=== PATIENT | female | born 1980 | race Caucasian/White ===

== ENCOUNTER 2017-05-03 14:09 | Observation (INO) | payer BC, MEDICAID, OTHER ==
[~2017-05-03] VITALS: Ht 167.6 cm; Wt 100.0 kg
[~2017-05-03 14:09] MED LIST: CYCL-36 PO; LEVEMIR SC; LISI-363 PO; MELO15TA2 PO; METO10TA PO; PERC10TA27 PO; REQU0.25 OR; TIZA4 PO; TRIL600T PO; TYLE3 PO; [UNRECOGNIZED DRUG - OTHER] SQ
[2017-05-03 14:13] VITALS: BP 179/103; PULSE 101; RESP 16; TEMP 97.7; O2SAT 99
[2017-05-03] MEDS ORDERED: ASPIRIN 325 MG TAB PO ONE (14:30)
[2017-05-03] MEDS ORDERED: SODIUM CHLORID 0.9% 500 ML INJ 500 ML IV ONE (14:30)
[2017-05-03] MEDS ORDERED: ONDANSETRON HCL 4 MG/2 ML VIAL IV PUSH ONE (14:30)
[2017-05-03] MEDS ORDERED: HYDROmorphone HCL PF 1 MG/ML VIAL IV PUSH ONE (14:30)
--- NOTE | 2017-05-03 14:43 | RADRPT ---
EXAM DATE/TIME: 05/03/2017 14:27 [place] COMPARISON: No previous studies available for comparison. INDICATIONS : Chest pain today. MEDICAL HISTORY : Hypertension. SURGICAL HISTORY : None. ENCOUNTER: Initial ACUITY: 1 day PAIN SCORE: 10/10 LOCATION: Bilateral chest FINDINGS: A single view of the chest demonstrates the lungs to be symmetrically aerated without evidence of mas s, infiltrate or effusion. The cardiomediastinal contours are unremarkable. Osseous structures are intact. CONCLUSION: No acute disease. Elias Romero MD on May 03, 2017 at 14:40 Board Certified Radiologist. This report was verified electronically.
[2017-05-03] MEDS ORDERED: OXCA600T PO (14:52)
[2017-05-03] MEDS ORDERED: REGL10TA5 PO (14:52)
[2017-05-03] MEDS ORDERED: ZANA4CAP PO (14:52)
[2017-05-03] MEDS ORDERED: GABA300C5 PO (14:52)
[2017-05-03] MEDS ORDERED: OXYC-433 PO (14:52)
[2017-05-03] MEDS ORDERED: NOVOLOGMXP SQ ×2 (14:52)
[2017-05-03] MEDS ORDERED: ROPI0.25 PO (14:52)
[2017-05-03] MEDS ORDERED: LISI30TA4 PO (14:52)
--- NOTE | 2017-05-03 15:05 | PD ---
HPI Chief Complaint: Chest Pain Time Seen by Provider: 14:19 Travel History International Travel<30 days: No Contact w/Intl Traveler<30days: No Traveled to known affect area: No History of Present Illness HPI 36-year-old female that presents to the ED for evaluation of right-sided chest pain for the past 2 hours. No injury or trauma. Per patient herself to take a deep breath. Denies any urinary or bowel movement issues. No history of this in the past. She has had her gallbladder removed. Denies any recent travel. She does have a history of diabetes and her blood pressure. No trauma. No overuse. Pain is mostly to the right breast and radiates to the back. History of neuropathy and takes pain medication chronically. Denies feeling similar to the past. No history of heart disease on herself but history of heart disease in family. Denies possibility of . Allergies to different medications. Patient states that her pain, nondistended 10. Gets worse with movement as well as with deep breaths. Has not taken anything for this. PFSH Past Medical History Arthritis: Yes Asthma: No Autoimmune Disease: No Blood Disorders: No Anxiety: Yes Depression: Yes Heart Rhythm Problems: No Cancer: No Cardiac Catheterization: No Cardiovascular Problems: No High Cholesterol: No Chemotherapy: No Chest Pain: No Congestive Heart Failure: No COPD: No Cerebrovascular Accident: No Diabetes: Yes (TYPE 1) Patient Takes Glucophage: No Diminished Hearing: No Gastrointestinal Disorders: No GERD: No Glaucoma: No Genitourinary: No Headaches: Yes Hepatitis: No Hiatal Hernia: No Hypertension: Yes Immune Disorder: No Kidney Stones: No Musculoskeletal: Yes Neurologic: Yes (NEURALGIA) Psychiatric: No Respiratory: No Resp. Syncytial Virus (RSV): No Immunizations Current: Yes Myocardial Infarction: No Radiation Therapy: No Renal Failure: No Seizures: Yes Shingles: Yes Sickle Cell Disease: No Sleep Apnea: No Thyroid Disease: No Ulcer: No ?: Not Menopausal: Yes : 2 Para: 2 Tubal Ligation: Yes Past Surgical History Abdominal Surgery: No AICD: No Cardiac Surgery: No Section: Yes (X 2) Cholecystectomy: Yes Coronary Artery Bypass Graft: No Ear Surgery: No Endocrine Surgery: Yes (ERCP 01/2005) Eye Surgery: No Genitourinary Surgery: No Gynecologic Surgery: Yes (hysterectomy partial just uterus 2005) Hysterectomy: Yes (2006) Joint Replacement: No Neurologic Surgery: Yes (SHINGLES) Oral Surgery: No Pacemaker: No Thoracic Surgery: No Other Surgery: Yes Social History Alcohol Use: No Tobacco Use: Yes (1/2 PPD) Substance Use: No Allergies-Medications (Allergen,Severity, Reaction): Coded Allergies: citalopram (Unverified Allergy, Severe, VOMIT, 09/26/16) duloxetine (Unverified Allergy, Severe, VOMIT, 09/26/16) fluvoxamine (Unverified Allergy, Severe, VOMIT, 09/26/16) morphine (Unverified Allergy, Severe, Rash, 09/26/16) paroxetine (Unverified Allergy, Severe, VOMIT, 09/26/16) sertraline (Unverified Allergy, Severe, VOMIT, 09/26/16) venlafaxine (Unverified Allergy, Severe, VOMIT, 09/26/16) Sulfa (Sulfonamide Antibiotics) (Unverified Allergy, Intermediate, 09/26/16 ) lorazepam (Unverified Allergy, Mild, AGITATION, 09/26/16) gabapentin (Unverified Adverse Reaction, Intermediate, 09/26/16) Uncoded Allergies: all dm pills (Adverse Reaction, Intermediate, 08/02/09) Reported Meds & Prescriptions Reported Meds & Active Scripts Active Reported Oxycodone-Acetaminophen 10-325 mg Tab 1 Tab PO Q4H PRN Zanaflex (Tizanidine HCl) 4 Mg Cap 4 Mg PO Q8HR Gabapentin 300 Mg Cap 300 Mg PO QID Ropinirole 0.25 Mg Tab 0.25 Mg PO TID Reglan (Metoclopramide HCl) 10 Mg Tab 10 Mg PO Q6HR Lisinopril 30 Mg Tab 30 Mg PO DAILY Novolog Mix 70-30 Inj (Insulin Aspart Prota 70%/Aspart 30%) 1,000 Unit/10 Ml Vial 44 Units SQ DAILY Novolog Mix 70-30 Inj (Insulin Aspart Prota 70%/Aspart 30%) 1,000 Unit/10 Ml Vial 66 Units SQ HS Oxcarbazepine 600 Mg Tab 600 Mg PO TID Review of Systems Except as stated in HPI: all other systems reviewed are Neg Physical Exam Narrative GENERAL: SKIN: Warm and dry. HEAD: Atraumatic. Normocephalic. EYES: Pupils equal and round. No scleral icterus. No injection or drainage. ENT: No nasal bleeding or discharge. Mucous membranes pink and moist. Tongue is midline. No uvula deviation. NECK: Trachea midline. No JVD. CARDIOVASCULAR: Regular rate and rhythm. No murmurs, S3, S4. RESPIRATORY: No accessory muscle use. Clear to auscultation. Breath sounds equal bilaterally. GASTROINTESTINAL: Abdomen soft, non-tender, nondistended. Hepatic and splenic margins not palpable. MUSCULOSKELETAL: Extremities without clubbing, cyanosis, or edema. No obvious deformities. Full range of motion of the upper and lower extremity bilaterally. No reproducible pain on the right breast or with touch. No lumbar , thoracic, cervical spine tenderness to palpation. 2+ pulses bilaterally. NEUROLOGICAL: Awake and alert. No obvious cranial nerve deficits. Motor grossly within normal limits. Five out of 5 muscle strength in the arms and legs. Normal speech. PSYCHIATRIC: Appropriate mood and affect; insight and judgment normal. Data Data Last Documented VS Vital Signs Date Time Temp Pulse Resp B/P (MAP) Pulse Ox O2 Delivery O2 Flow Rate FiO2 05/03/17 16:16 95 20 126/58 (80) 97 Room Air 05/03/17 14:13 97.7 Orders Orders Electrocardiogram (05/03/17 14:25) Ckmb (Isoenzyme) Profile (05/03/17 14:25) Complete Blood Count With Diff (05/03/17 14:25) Comprehensive Metabolic Panel (05/03/17 14:25) D-Dimer (05/03/17 14:25) Magnesium (Mg) (05/03/17 14:25) Prothrombin Time / Inr (Pt) (05/03/17 14:25) Act Partial Throm Time (Ptt) (05/03/17 14:25) Troponin I (05/03/17 14:25) Lipase (05/03/17 14:25) Ecg Monitoring (05/03/17 14:25) Bilateral Bp Monitoring (05/03/17 14:25) Iv Access Insert/Monitor (05/03/17 14:25) Oximetry (05/03/17 14:25) Oxygen Administration (05/03/17 14:25) Aspirin (Aspirin) (05/03/17 14:30) Sodium Chlorid 0.9% 500 Ml Inj (Ns 500 M (05/03/17 14:30) Chest, Single Ap (05/03/17 ) Hydromorphone Pf Inj (Dilaudid Pf Inj) (05/03/17 14:30) Ondansetron Inj (Zofran Inj) (05/03/17 14:30) Hydromorphone Pf Inj (Dilaudid Pf Inj) (05/03/17 15:15) CKMB (05/03/17 15:11) CKMB% (05/03/17 15:11) Admit Order (Ed Use Only) (05/03/17 16:29) Labs Laboratory Tests Test 05/03/17 15:11 White Blood Count 11.2 TH/MM3 Red Blood Count 5.05 MIL/MM3 Hemoglobin 14.7 GM/DL Hematocrit 44.5 % Mean Corpuscular Volume 88.2 FL Mean Corpuscular Hemoglobin 29.2 PG Mean Corpuscular Hemoglobin Concent 33.1 % Red Cell Distribution Width 13.5 % Platelet Count 322 TH/MM3 Mean Platelet Volume 8.1 FL Neutrophils (%) (Auto) 73.6 % Lymphocytes (%) (Auto) 20.8 % Monocytes (%) (Auto) 3.0 % Eosinophils (%) (Auto) 2.1 % Basophils (%) (Auto) 0.5 % Neutrophils # (Auto) 8.2 TH/MM3 Lymphocytes # (Auto) 2.3 TH/MM3 Monocytes # (Auto) 0.3 TH/MM3 Eosinophils # (Auto) 0.2 TH/MM3 Basophils # (Auto) 0.1 TH/MM3 CBC Comment DIFF FINAL Differential Comment Prothrombin Time 9.6 SEC Prothromb Time International Ratio 0.9 RATIO Activated Partial Thromboplast Time 39.2 SEC D-Dimer Quantitative (PE/DVT) 0.28 MG/L FEU Blood Urea Nitrogen 9 MG/DL Creatinine 0.62 MG/DL Random Glucose 243 MG/DL Total Protein 7.6 GM/DL Albumin 3.7 GM/DL Calcium Level 8.5 MG/DL Magnesium Level 1.6 MG/DL Alkaline Phosphatase 96 U/L Aspartate Amino Transf (AST/SGOT) 12 U/L Alanine Aminotransferase (ALT/SGPT) 17 U/L Total Bilirubin 0.1 MG/DL Sodium Level 135 MEQ/L Potassium Level 4.2 MEQ/L Chloride Level 102 MEQ/L Carbon Dioxide Level 24.5 MEQ/L Anion Gap 9 MEQ/L Estimat Glomerular Filtration Rate 109 ML/MIN Total Creatine Kinase 125 U/L Creatine Kinase MB 2.1 NG/ML Troponin I LESS THAN 0.02 NG/ML Lipase 101 U/L MDM Medical Decision Making Medical Screen Exam Complete: Yes Emergency Medical Condition: Yes Medical Record Reviewed: Yes Interpretation(s) EKG shows sinus rhythm with No sign of acute ischemia read by me and attending Last Impressions Chest X-Ray 05/03/17 0000 Signed Impressions: Service Date/Time: April 14:27 - CONCLUSION: No acute disease. Elias Romero MD CBC & BMP Diagram 05/03/17 15:11 Total Protein 7.6, Albumin 3.7, Calcium Level 8.5, Magnesium Level 1.6, Alkaline Phosphatase 96, Aspartate Amino Transf (AST/SGOT) 12 L, Alanine Aminotransferase (ALT/SGPT) 17, Total Bilirubin 0.1 L troponin and CKMB negative lipase WNL coags WNL D-dimer negative Differential Diagnosis Chest pain versus atypical chest pain versus PE versus pneumothorax versus ACS versus muscle strain versus pneumonia versus pleurisy Narrative Course 36-year-old female that presents to the ED for evaluation of right-sided chest pain. Patient was properly examined and was found to have signs and symptoms concerning with chest pain. Unclear etiology at this time. Labs and imaging ordered. Pain meds ordered. Labs and imaging showed no sign of acute disease. Unclear etiology of the patient's pain. Patient still in some discomfort. Unfortunately although patient is young she does have multiple risk factors for ACS including family history, smoking, hypertension and diabetes. Because of this as patient has never had a stress test or any cardiology follow-up with the recommended admission for chest pain center for further eval to rule out cardiac etiology. Patient agrees with this. Patient will be admitted to the chest pain center by me. Patient was admitted to the chest pain center. Diagnosis Primary Impression: Chest pain in adult Admitting Information Admitting Physician Requests: Vitor Lanier May 03, 2017 15:05
[2017-05-03 15:13] VITALS: BP 118/59; PULSE 81; RESP 20; O2SAT 96
[2017-05-03] MEDS ORDERED: HYDROmorphone HCL PF 2 MG/ML VIAL IV PUSH ONE (15:15)
[2017-05-03 15:41] LABS: AUTOMATED NEUTROPHIL # 8.2 TH/MM3 (1.8-7.7); BASOPHIL # 0.1 TH/MM3 (0-0.2); BASOPHIL % 0.5 % (0.0-2.0); EOSINOPHIL # 0.2 TH/MM3 (0-0.4); EOSINOPHIL % 2.1 % (0.0-4.0); HEMATOCRIT 44.5 % (35.0-46.0); HEMOGLOBIN 14.7 GM/DL (11.6-15.3); LYMPH % 20.8 % (9.0-44.0); LYMPHOCYTE # 2.3 TH/MM3 (1.0-4.8); MEAN CELL VOLUME 88.2 FL (80.0-100.0); MEAN CORPUSCULAR HEMOGLOBIN 29.2 PG (27.0-34.0); MEAN CORPUSCULAR HGB CONC 33.1 % (32.0-36.0); MEAN PLATELET VOLUME 8.1 FL (7.0-11.0); MONOCYTE # 0.3 TH/MM3 (0-0.9); NEUT % 73.6 % (16.0-70.0); PLATELET COUNT 322 TH/MM3 (150-450); RED BLOOD COUNT 5.05 MIL/MM3 (4.00-5.30); RED CELL DISTRIBUTION WIDTH 13.5 % (11.6-17.2); WHITE BLOOD COUNT 11.2 TH/MM3 (4.0-11.0)
[2017-05-03 15:54] LABS: INTERNATIONAL NORMALIZED RATIO 0.9 RATIO; PROTHROMBIN TIME - PATIENT 9.6 SEC (9.8-11.6)
[2017-05-03 16:00] LABS: ALBUMIN 3.7 GM/DL (3.4-5.0); ALT (GPT) 17 U/L (10-53); AST (GOT) 12 U/L (15-37); BICARBONATE 24.5 MEQ/L (21.0-32.0); BLOOD UREA NITROGEN 9 MG/DL (7-18); CALCIUM 8.5 MG/DL (8.5-10.1); CHLORIDE 102 MEQ/L (98-107); CREATININE 0.62 MG/DL (0.50-1.00); GLOMERULAR FILTRATION RATE 109 ML/MIN (>89); GLUCOSE,RANDOM 243 MG/DL (74-106); MAGNESIUM 1.6 MG/DL (1.5-2.5); SODIUM (NA) 135 MEQ/L (136-145)
[2017-05-03 16:04] LABS: ALKALINE PHOSPHATASE 96 U/L (45-117); TOTAL BILIRUBIN ADULT 0.1 MG/DL (0.2-1.0); TOTAL PROTEIN 7.6 GM/DL (6.4-8.2); TROPONIN I LESS THAN 0.02 NG/ML (0.02-0.05)
[2017-05-03 16:05] LABS: D-DIMER 0.28 MG/L FEU (0.00-0.50)
[2017-05-03 16:16] VITALS: BP 126/58; PULSE 95; RESP 20; O2SAT 97
[2017-05-03] MEDS ORDERED: METOCLOPRAMIDE HCL 10 MG TAB PO PRN (16:45)
--- NOTE | 2017-05-03 16:55 | HHI.HP ---
HPI Primary Care Physician Non-Staff Chief Complaint Chest pain History of Present Illness This is a 36-year-old female history of hypertension, hyperlipidemia, diabetes, chronic neck pain, seizure disorder, and tobacco abuse that presents via private vehicle with a complaint of chest discomfort. 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 Is been there for 2 hours. The discomfort is worsened by deep breath. Multiple nauseous initially but states that is really not uncommon. She has nausea regularly has Reglan for that. Denies shortness of breath or diaphoresis. She cannot recall having symptoms like this before. Denies history of CAD. Upon reviewing records she had a nonischemic ETT at this facility in 2007. Denies recent illnesses. Denies fevers or chills. Denies recent travel. Denies . Review of Systems General: Patient denies fevers, chills, and recent travel. HEENT: Patient denies headache, sore throat, difficulty swallowing. Cardiovascular: Has the chest discomfort as mentioned above. Denies sensation of heart beating rapidly or irregularly. No syncope. Denies diaphoresis. Respiratory: She has inspirational chest discomfort. Denies shortness of breath. Denies coughing wheezing or hemoptysis. GI: She was nauseous but that is really not that uncommon for her. Patient denies vomiting, diarrhea, abdominal pain, bloody stools. Musculoskeletal: Chronic neck pain. Patient denies joint pain or edema. Denies calf pain or edema. Neurovascular: Patient denies numbness, tingling, weakness in extremities. Denies headache. Endocrine: Denies polyuria and polydipsia. Hematologic: Denies easy bruising. Skin: Denies rash or itching. Past Family Social History Allergies: Coded Allergies: citalopram (Unverified Allergy, Severe, VOMIT, 09/26/16) duloxetine (Unverified Allergy, Severe, VOMIT, 09/26/16) fluvoxamine (Unverified Allergy, Severe, VOMIT, 09/26/16) morphine (Unverified Allergy, Severe, Rash, 09/26/16) paroxetine (Unverified Allergy, Severe, VOMIT, 09/26/16) sertraline (Unverified Allergy, Severe, VOMIT, 09/26/16) venlafaxine (Unverified Allergy, Severe, VOMIT, 09/26/16) Sulfa (Sulfonamide Antibiotics) (Unverified Allergy, Intermediate, 09/26/16 ) lorazepam (Unverified Allergy, Mild, AGITATION, 09/26/16) gabapentin (Unverified Adverse Reaction, Intermediate, 09/26/16) Uncoded Allergies: all dm pills (Adverse Reaction, Intermediate, 08/02/09) Past Medical History Hyperlipidemia however she does not take medication for. Hypertension, diabetes , chronic neck pain, seizure disorder, tobacco abuse. Denies known coronary artery disease. Past Surgical History , hysterectomy, cholecystectomy. Reported Medications Reported Meds & Active Scripts Active Reported Oxycodone-Acetaminophen 10-325 mg Tab 1 Tab PO Q4H PRN Zanaflex (Tizanidine HCl) 4 Mg Cap 4 Mg PO Q8HR Gabapentin 300 Mg Cap 300 Mg PO QID Ropinirole 0.25 Mg Tab 0.25 Mg PO TID Reglan (Metoclopramide HCl) 10 Mg Tab 10 Mg PO Q6HR Lisinopril 30 Mg Tab 30 Mg PO DAILY Novolog Mix 70-30 Inj (Insulin Aspart Prota 70%/Aspart 30%) 1,000 Unit/10 Ml Vial 44 Units SQ DAILY Novolog Mix 70-30 Inj (Insulin Aspart Prota 70%/Aspart 30%) 1,000 Unit/10 Ml Vial 66 Units SQ HS Oxcarbazepine 600 Mg Tab 600 Mg PO TID Active Ordered Medications Current Medications Medications (Trade) Dose Ordered Sig/Sidney Route Start Time Stop Time Status Last Admin (Neurontin) 300 mg QID PO 05/03/17 18:00 UNV (Reglan) 10 mg Q6HR PRN PO 05/03/17 16:45 UNV (Trileptal) 600 mg TID PO 05/03/17 18:00 UNV (Percocet 10-325 Mg) 1 tab Q4H PRN PO 05/03/17 16:45 UNV (Requip) 0.25 mg TID PO 05/03/17 18:00 UNV (Zanaflex) 4 mg Q8HR PO 05/03/17 22:00 UNV Non-Formulary Medication 30 mg DAILY PO 05/04/17 09:00 UNV Family History Denies family history of CAD. Social History Smokes about one half pack of cigarettes daily for 21 years. Denies alcohol or illicit drug use. 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 Physical Exam Vital Signs Vital Signs Date Time Temp Pulse Resp B/P (MAP) Pulse Ox O2 Delivery O2 Flow Rate FiO2 05/03/17 16:16 95 20 126/58 (80) 97 Room Air 05/03/17 15:16 97 Room Air 05/03/17 15:13 81 20 118/59 (78) 96 Room Air 05/03/17 14:13 97.7 101 16 179/103 (128) 99 Physical Exam GENERAL: This is a well-nourished, well-developed patient, in no apparent distress. Patient speaks in clear complete sentences. Patient is pleasant. HEENT: Head is atraumatic and normocephalic. Neck is supple without lymphadenopathy and trachea is midline. No JVD or carotid bruits. CARDIOVASCULAR: Regular rate and rhythm without murmurs, gallops, or rubs. RESPIRATORY: Clear to auscultation. Breath sounds equal bilaterally. No wheezes , rales, or rhonchi. Chest wall is tender just right of the sternum. This worsens the discomfort she has been having. Discomfort is also reproduced with twisting of the torso. No use of accessory muscles. GASTROINTESTINAL: Abdomen is nontender, nondistended. Abdomen soft. No obvious pulsatile mass or bruit. No CVA tenderness. Strong femoral pulses bilaterally. Normal bowel sounds in all quadrants. MUSCULOSKELETAL: Chronic neck pain with movement of her neck. Patient is moving upper and lower extremities freely. No calf tenderness or edema, no Homans sign. Strong pulses in upper and lower extremities. NEUROLOGICAL: Patient is alert and oriented. Cranial nerves 2-12 are grossly intact. No focal deficits and speech is clear. SKIN: No rash and turgor is normal. Laboratory Laboratory Tests Test 05/03/17 15:11 White Blood Count 11.2 Red Blood Count 5.05 Hemoglobin 14.7 Hematocrit 44.5 Mean Corpuscular Volume 88.2 Mean Corpuscular Hemoglobin 29.2 Mean Corpuscular Hemoglobin Concent 33.1 Red Cell Distribution Width 13.5 Platelet Count 322 Mean Platelet Volume 8.1 Neutrophils (%) (Auto) 73.6 Lymphocytes (%) (Auto) 20.8 Monocytes (%) (Auto) 3.0 Eosinophils (%) (Auto) 2.1 Basophils (%) (Auto) 0.5 Neutrophils # (Auto) 8.2 Lymphocytes # (Auto) 2.3 Monocytes # (Auto) 0.3 Eosinophils # (Auto) 0.2 Basophils # (Auto) 0.1 CBC Comment DIFF FINAL Differential Comment Prothrombin Time 9.6 Prothromb Time International Ratio 0.9 Activated Partial Thromboplast Time 39.2 D-Dimer Quantitative (PE/DVT) 0.28 Blood Urea Nitrogen 9 Creatinine 0.62 Random Glucose 243 Total Protein 7.6 Albumin 3.7 Calcium Level 8.5 Magnesium Level 1.6 Alkaline Phosphatase 96 Aspartate Amino Transf (AST/SGOT) 12 Alanine Aminotransferase (ALT/SGPT) 17 Total Bilirubin 0.1 Sodium Level 135 Potassium Level 4.2 Chloride Level 102 Carbon Dioxide Level 24.5 Anion Gap 9 Estimat Glomerular Filtration Rate 109 Total Creatine Kinase 125 Creatine Kinase MB 2.1 Troponin I LESS THAN 0.02 Lipase 101 Result Diagram: 05/03/17 1511 05/03/17 1511 Imaging Last 48 hours Impressions Chest X-Ray 05/03/17 0000 Signed Impressions: Service Date/Time: April 14:27 - CONCLUSION: No acute disease. Elias Romero MD Course Initial EKG is sinus rhythm rate [address] segment depressions or elevations. Caprini VTE Risk Assessment Caprini VTE Risk Assessment: No/Low Risk (score <= 1) Caprini Risk Assessment Model Point Value = 1 Point Value = 2 Point Value = 3 Point Value = 5 Age 41-60 Minor surgery BMI > 25 kg/m2 Swollen legs Varicose veins or History of unexplained or recurrent spontaneous Oral contraceptives or hormone replacement Sepsis (< 1 month) Serious lung disease, including pneumonia (< 1 month) Abnormal pulmonary function Acute myocardial infarction Congestive heart failure (< 1 month) History of inflammatory bowel disease Medical patient at bed rest Age 61-74 Arthroscopic surgery Major open surgery (> 45 min) Laparoscopic surgery (> 45 min) Malignancy Confined to bed (> 72 hours) Immobilizing plaster cast Central venous access Age >= 75 History of VTE Family history of VTE Factor V Leiden Prothrombin [id number] Lupus anticoagulant Anticardiolipin antibodies Elevated serum homocysteine Heparin-induced thrombocytopenia Other congenital or acquired thrombophilia Stroke (< 1 month) Elective arthroplasty Hip, pelvis, or leg fracture Acute spinal cord injury (< 1 month) Prophylaxis Regimen Total Risk Factor Score Risk Level Prophylaxis Regimen 0-1 Low Early ambulation 2 Moderate Order ONE of the following: *Sequential Compression Device (SCD) *Heparin 5000 units SQ BID 3-4 Higher Order ONE of the following medications: *Heparin 5000 units SQ TID *Enoxaparin/Lovenox 40 mg SQ daily (WT < 150 kg, CrCl > 30 mL/min) *Enoxaparin/Lovenox 30 mg SQ daily (WT < 150 kg, CrCl > 10-29 mL/min) *Enoxaparin/Lovenox 30 mg SQ BID (WT < 150 kg, CrCl > 30 mL/min) AND/OR *Sequential Compression Device (SCD) 5 or more Highest Order ONE of the following medications: *Heparin 5000 units SQ TID (Preferred with Epidurals) *Enoxaparin/Lovenox 40 mg SQ daily (WT < 150 kg, CrCl > 30 mL/min) *Enoxaparin/Lovenox 30 mg SQ daily (WT < 150 kg, CrCl > 10-29 mL/min) *Enoxaparin/Lovenox 30 mg SQ BID (WT < 150 kg, CrCl > 30 mL/min) AND *Sequential Compression Device (SCD) Assessment and Plan Assessment and Plan * Chest pain: Her symptoms seem atypical. She will continue to have serial cardiac enzymes and EKGs for ruling out purposes. She will be seen by Dr. Humphries of cardiology in the chest pain center. Patient likely to have a Saeed protocol ETT if she rules out. Patient to be discharged home if her stress test is nonischemic with instructions to follow-up with PCP. * Chronic neck pain: Continue medications. * Hyperlipidemia: Patient is a discussed taking medication with her PCP. She is a high risk of multiple medical conditions with a history of diabetes and not taking medications for hyperlipidemia. * Diabetes: Patient will be on sliding scale insulin coverage. She will be on diabetic diet. Resume medication at discharge. Follow diabetic diet at home. * Hypertension: Continue medication. * Seizure disorder: Continue medications.\ * Tobacco abuse: Patient counseled on importance of smoking cessation. Patient is stable at this time. She is agreeable to this plan. Aleksandr Freitas May 03, 2017 16:55
[2017-05-03] MEDS ORDERED: DEXTROSE 50% IN WATER 50 ML VIAL(D50) IV PUSH PRN (17:00)
[2017-05-03] MEDS ORDERED: GLUCAGON 1 MG/ML VIAL OTHER PRN (17:00)
[2017-05-03] MEDS ORDERED: ACETAMINOPHEN 500 MG CPLT PO PRN (17:00)
--- NOTE | 2017-05-03 17:35 | PD.CARD.PN ---
Subjective Subjective Remarks Patient was discussed with the PA, medical records were reviewed, and the patient was seen and examined by me personally. I am in agreement with the documentation and plan at this point. 36-year-old young woman who started new job, had her 12-year-old out of school, and been experiencing some stress at home who states that she is a bit overwhelmed with stress right now. 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 The pain radiated directly through to her back and his continued to the present time. There are no precipitating or relieving factors although it becomes significantly worse with a deep breath. There are no associated nausea vomiting or other symptoms. She has had an upper respiratory problem with cough and bronchitis for about a week. She has hypertension hyperlipidemia diabetes and seizure disorder but has not had a seizure for a number of years. Objective Medications Current Medications Medications (Trade) Dose Ordered Sig/Sidney Route Start Time Stop Time Status Last Admin (Neurontin) 300 mg QID PO 05/03/17 18:00 (Reglan) 10 mg Q6HR PRN PO 05/03/17 16:45 (Trileptal) 600 mg TID PO 05/03/17 18:00 (Percocet 10-325 Mg) 1 tab Q4H PRN PO 05/03/17 16:45 (Requip) 0.25 mg TID PO 05/03/17 18:00 (Zanaflex) 4 mg Q8HR PO 05/03/17 22:00 (Prinivil) 30 mg DAILY PO 05/04/17 09:00 (Tylenol) 500 mg Q4H PRN PO 05/03/17 17:00 (NovoLOG SUPPLEMENTAL SCALE) 1 ACHS SLIDING SCALE SQ 05/03/17 17:00 (D50w (Vial) Inj) 50 ml UNSCH PRN IV PUSH 05/03/17 17:00 (Glucagon Inj) 1 mg UNSCH PRN OTHER 05/03/17 17:00 Vital Signs / I&O Vital Signs Date Time Temp Pulse Resp B/P (MAP) Pulse Ox O2 Delivery O2 Flow Rate FiO2 05/03/17 16:58 21 3/22/18 16:16 95 20 126/58 (80) 97 Room Air 05/03/17 15:16 97 Room Air 05/03/17 15:13 81 20 118/59 (78) 96 Room Air 05/03/17 14:13 97.7 101 16 179/103 (128) 99 I/O 05/02/17 05/02/17 05/02/17 05/03/17 05/03/17 05/03/17 07:00 15:00 23:00 07:00 15:00 23:00 Intake Total 500 ml Balance 500 ml Intake IV Total 500 ml # Voids 1 Physical Exam Moderately obese woman sitting up in bed not in obvious distress although she complains of the chest pain Neck supple no JVD no bruits Chest slightly tender in the right costal chondral area but breath sounds are clear with no rales wheezes or rhonchi Regular sinus rhythm no gallops rubs or murmurs Abdomen is obese soft nontender Laboratory Laboratory Tests Test 05/03/17 15:11 White Blood Count 11.2 TH/MM3 Red Blood Count 5.05 MIL/MM3 Hemoglobin 14.7 GM/DL Hematocrit 44.5 % Mean Corpuscular Volume 88.2 FL Mean Corpuscular Hemoglobin 29.2 PG Mean Corpuscular Hemoglobin Concent 33.1 % Red Cell Distribution Width 13.5 % Platelet Count 322 TH/MM3 Mean Platelet Volume 8.1 FL Neutrophils (%) (Auto) 73.6 % Lymphocytes (%) (Auto) 20.8 % Monocytes (%) (Auto) 3.0 % Eosinophils (%) (Auto) 2.1 % Basophils (%) (Auto) 0.5 % Neutrophils # (Auto) 8.2 TH/MM3 Lymphocytes # (Auto) 2.3 TH/MM3 Monocytes # (Auto) 0.3 TH/MM3 Eosinophils # (Auto) 0.2 TH/MM3 Basophils # (Auto) 0.1 TH/MM3 CBC Comment DIFF FINAL Differential Comment Prothrombin Time 9.6 SEC Prothromb Time International Ratio 0.9 RATIO Activated Partial Thromboplast Time 39.2 SEC D-Dimer Quantitative (PE/DVT) 0.28 MG/L FEU Blood Urea Nitrogen 9 MG/DL Creatinine 0.62 MG/DL Random Glucose 243 MG/DL Total Protein 7.6 GM/DL Albumin 3.7 GM/DL Calcium Level 8.5 MG/DL Magnesium Level 1.6 MG/DL Alkaline Phosphatase 96 U/L Aspartate Amino Transf (AST/SGOT) 12 U/L Alanine Aminotransferase (ALT/SGPT) 17 U/L Total Bilirubin 0.1 MG/DL Sodium Level 135 MEQ/L Potassium Level 4.2 MEQ/L Chloride Level 102 MEQ/L Carbon Dioxide Level 24.5 MEQ/L Anion Gap 9 MEQ/L Estimat Glomerular Filtration Rate 109 ML/MIN Total Creatine Kinase 125 U/L Creatine Kinase MB 2.1 NG/ML Troponin I LESS THAN 0.02 NG/ML Lipase 101 U/L Imaging Last 24 hours Impressions Chest X-Ray 05/03/17 0000 Signed Impressions: Service Date/Time: April 14:27 - CONCLUSION: No acute disease. Elias Romero MD Assessment and Plan Problem List: (1) HTN (hypertension) ICD Codes: I10 - Essential (primary) hypertension Status: Chronic (2) Diabetes ICD Codes: E11.9 - Type 2 diabetes mellitus without complications Status: Chronic (3) Seizure disorder ICD Codes: G40.909 - Epilepsy, unspecified, not intractable, without status epilepticus Status: Chronic (4) Chest pain in adult ICD Codes: R07.9 - Chest pain, unspecified Status: Acute Plan: Will evaluate using standard chest pain center protocol We will also evaluate blood pressure and diabetes during her stay to maintain adequate control Cl Humphries MD May 03, 2017 17:35
[2017-05-03 18:13] VITALS: BP 145/86; PULSE 77; RESP 18; TEMP 98.6; O2SAT 97
[2017-05-03] MEDS: GABAPENTIN 300 MG CAP PO SCH ×2 (18:35→21:46)
[2017-05-03] MEDS: OXcarbazepine 600 MG TAB PO SCH (18:36)
[2017-05-03 18:48] LABS: TROPONIN I LESS THAN 0.02 NG/ML (0.02-0.05)
[2017-05-03] MEDS: INSULIN ASPART SUPPLEMENTAL SCALE SQ SCH ×2 (19:23→21:47)
[2017-05-03] MEDS: oxyCODONE/ACETAMINOPHEN 10 MG/325 MG TAB PO PRN (19:24)
[2017-05-03 20:46] VITALS: O2SAT 98
[2017-05-03 20:59] VITALS: BP 152/92; PULSE 86; RESP 17; TEMP 98.7; O2SAT 96
[2017-05-03 22:59] LABS: TROPONIN I LESS THAN 0.02 NG/ML (0.02-0.05)
[2017-05-04 00:16] VITALS: BP 174/97; PULSE 95; RESP 17; TEMP 98.2; O2SAT 94
[2017-05-04] MEDS: oxyCODONE/ACETAMINOPHEN 10 MG/325 MG TAB PO PRN ×2 (00:26→09:26)
[2017-05-04 04:22] VITALS: BP 140/90; PULSE 92; RESP 17; TEMP 98.5; O2SAT 95
--- NOTE | 2017-05-04 08:11 | PD.CARD.PN ---
Subjective Subjective Remarks Sleep well. Continues to experience right inframammary discomfort made worse with deep breathing. Objective Medications Current Medications Medications (Trade) Dose Ordered Sig/Sidney Route Start Time Stop Time Status Last Admin (Neurontin) 300 mg QID PO 05/03/17 18:00 05/03/17 21:46 (Reglan) 10 mg Q6HR PRN PO 05/03/17 16:45 (Trileptal) 600 mg TID PO 05/03/17 18:00 05/03/17 18:36 (Percocet 10-325 Mg) 1 tab Q4H PRN PO 05/03/17 16:45 05/04/17 00:26 (Requip) 0.25 mg TID PO 05/03/17 18:00 05/03/17 18:35 (Zanaflex) 4 mg Q8HR PO 05/03/17 22:00 05/04/17 05:24 (Prinivil) 30 mg DAILY PO 05/04/17 09:00 (Tylenol) 500 mg Q4H PRN PO 05/03/17 17:00 (NovoLOG SUPPLEMENTAL SCALE) 1 ACHS SLIDING SCALE SQ 05/03/17 17:00 05/03/17 21:47 (D50w (Vial) Inj) 50 ml UNSCH PRN IV PUSH 05/03/17 17:00 (Glucagon Inj) 1 mg UNSCH PRN OTHER 05/03/17 17:00 Vital Signs / I&O Vital Signs Date Time Temp Pulse Resp B/P (MAP) Pulse Ox O2 Delivery O2 Flow Rate FiO2 05/04/17 04:22 98.5 92 17 140/90 (107) 95 05/04/17 00:16 98.2 95 17 174/97 (122) 94 05/03/17 20:59 98.7 86 17 152/92 (112) 96 05/03/17 20:46 98 05/03/17 18:13 98.6 77 18 145/86 (105) 97 05/03/17 16:58 21 05/03/17 16:16 95 20 126/58 (80) 97 Room Air 05/03/17 15:16 97 Room Air 05/03/17 15:13 81 20 118/59 (78) 96 Room Air 05/03/17 14:13 97.7 101 16 179/103 (128) 99 I/O 05/03/17 05/03/17 05/03/17 05/04/17 05/04/17 05/04/17 07:00 15:00 23:00 07:00 15:00 23:00 Intake Total 500 ml Balance 500 ml Intake IV Total 500 ml # Voids 1 2 Physical Exam Alert and oriented x3, Lungs clear throughout. RRR, without murmur. No acute distress, speaking in full sentences. Laboratory Laboratory Tests Test 05/03/17 15:11 05/03/17 18:06 05/03/17 21:39 White Blood Count 11.2 TH/MM3 Red Blood Count 5.05 MIL/MM3 Hemoglobin 14.7 GM/DL Hematocrit 44.5 % Mean Corpuscular Volume 88.2 FL Mean Corpuscular Hemoglobin 29.2 PG Mean Corpuscular Hemoglobin Concent 33.1 % Red Cell Distribution Width 13.5 % Platelet Count 322 TH/MM3 Mean Platelet Volume 8.1 FL Neutrophils (%) (Auto) 73.6 % Lymphocytes (%) (Auto) 20.8 % Monocytes (%) (Auto) 3.0 % Eosinophils (%) (Auto) 2.1 % Basophils (%) (Auto) 0.5 % Neutrophils # (Auto) 8.2 TH/MM3 Lymphocytes # (Auto) 2.3 TH/MM3 Monocytes # (Auto) 0.3 TH/MM3 Eosinophils # (Auto) 0.2 TH/MM3 Basophils # (Auto) 0.1 TH/MM3 CBC Comment DIFF FINAL Differential Comment Prothrombin Time 9.6 SEC Prothromb Time International Ratio 0.9 RATIO Activated Partial Thromboplast Time 39.2 SEC D-Dimer Quantitative (PE/DVT) 0.28 MG/L FEU Blood Urea Nitrogen 9 MG/DL Creatinine 0.62 MG/DL Random Glucose 243 MG/DL Total Protein 7.6 GM/DL Albumin 3.7 GM/DL Calcium Level 8.5 MG/DL Magnesium Level 1.6 MG/DL Alkaline Phosphatase 96 U/L Aspartate Amino Transf (AST/SGOT) 12 U/L Alanine Aminotransferase (ALT/SGPT) 17 U/L Total Bilirubin 0.1 MG/DL Sodium Level 135 MEQ/L Potassium Level 4.2 MEQ/L Chloride Level 102 MEQ/L Carbon Dioxide Level 24.5 MEQ/L Anion Gap 9 MEQ/L Estimat Glomerular Filtration Rate 109 ML/MIN Total Creatine Kinase 125 U/L 94 U/L 83 U/L Creatine Kinase MB 2.1 NG/ML Troponin I LESS THAN 0.02 NG/ML LESS THAN 0.02 NG/ML LESS THAN 0.02 NG/ML Lipase 101 U/L Assessment and Plan Problem List: (1) HTN (hypertension) ICD Codes: I10 - Essential (primary) hypertension Status: Chronic Plan: Continue amlodipine 10mg QD. Also reports Metoprolol 25mg BID, will restart after exercise stress testing. (2) Diabetes ICD Codes: E11.9 - Type 2 diabetes mellitus without complications Status: Chronic Plan: Continue SSI, upon discharge will continue previously ordered SSI and insulin regimen. (3) Seizure disorder ICD Codes: G40.909 - Epilepsy, unspecified, not intractable, without status epilepticus Status: Chronic Plan: Follow up with PCP upon discharge. (4) Chest pain in adult ICD Codes: R07.9 - Chest pain, unspecified Status: Acute Assessment and Plan Ruled out with 3 sets of EKGs, cardiac enzymes, and monitored on telemetry overnight. Proceed with exercise cardiac stress testing this morning. If unremarkable, plans to discharge home with follow up with PCP. Patient is agreeable to plan of care. Problem Qualifiers (1) HTN (hypertension): Qualified Codes: I10 - Essential (primary) hypertension Kat Castellano May 04, 2017 08:11
[2017-05-04] MEDS: GABAPENTIN 300 MG CAP PO SCH (08:47)
[2017-05-04] MEDS: OXcarbazepine 600 MG TAB PO SCH (08:47)
[2017-05-04] MEDS: INSULIN ASPART SUPPLEMENTAL SCALE SQ SCH (08:48)
[2017-05-04] MEDS ORDERED: LISINOPRIL 10 MG TAB PO SCH (09:00)
[2017-05-04 10:56] VITALS: BP 138/96; PULSE 103; RESP 18; TEMP 98.7; O2SAT 95
--- NOTE | 2017-05-04 11:21 | HHI.DCPOC ---
Discharge Care Plan Diagnosis: (1) Chest pain in adult (2) Diabetes (3) Seizure disorder (4) HTN (hypertension) Goals to Promote Your Health * To prevent worsening of your condition and complications * To maintain your health at the optimal level Directions to Meet Your Goals Take your medications as prescribed Follow your dietary instruction Follow activity as directed Keep your appointments as scheduled Take your immunizations and boosters as scheduled If your symptoms worsen call your PCP, if no PCP go to Urgent Care Center or Emergency Room Smoking is Dangerous to Your Health. Avoid second hand smoke Call the 24-hour hour crisis hotline for domestic abuse at Kat Castellano May 04, 2017 11:21
[2017-05-04] MEDS ORDERED: AMLO10TA2 PO (11:37)
[2017-05-04] MEDS ORDERED: TOPROL PO (11:37)
[2017-05-04] MEDS ORDERED: NOVOLOGMXP SQ ×2 (11:37)
--- NOTE | 2017-05-04 12:03 | HHI.DS ---
Discharge Summary Admission Date May 03, 2017 at 16:30 Discharge Date: May 04, 2017 Admitting Diagnosis acute chest pain, r/o ACS (1) Chest pain in adult Diagnosis: Principal ICD Codes: R07.9 - Chest pain, unspecified Status: Acute (2) HTN (hypertension) Diagnosis: Secondary ICD Codes: I10 - Essential (primary) hypertension Status: Chronic (3) Diabetes Diagnosis: Secondary ICD Codes: E11.9 - Type 2 diabetes mellitus without complications Status: Chronic (4) Seizure disorder Diagnosis: Secondary ICD Codes: G40.909 - Epilepsy, unspecified, not intractable, without status epilepticus Status: Chronic Procedures Last 48 hours Impressions Chest X-Ray 05/03/17 0000 Signed Impressions: Service Date/Time: April 14:27 - CONCLUSION: No acute disease. Elias Romero MD Brief History 36-year-old female with known diabetes and hypertension presents to emergency room for further evaluation of right-sided chest pain. No chest pain center. Ruled out with 3 sets of EKGs and cardiac enzymes. Proceed with exercise stress test. CBC/BMP: 05/03/17 1511 05/03/17 1511 Significant Findings Laboratory Tests Test 05/03/17 15:11 05/03/17 18:06 05/03/17 21:39 White Blood Count 11.2 TH/MM3 (4.0-11.0) Neutrophils (%) (Auto) 73.6 % (16.0-70.0) Neutrophils # (Auto) 8.2 TH/MM3 (1.8-7.7) Prothrombin Time 9.6 SEC (9.8-11.6) Activated Partial Thromboplast Time 39.2 SEC (24.3-30.1) Random Glucose 243 MG/DL (74-106) Aspartate Amino Transf (AST/SGOT) 12 U/L (15-37) Total Bilirubin 0.1 MG/DL (0.2-1.0) Sodium Level 135 MEQ/L (136-145) Troponin I LESS THAN 0.02 NG/ML LESS THAN 0.02 NG/ML LESS THAN 0.02 NG/ML Pt Condition on Discharge: Good Discharge Disposition: Discharge Home Discharge Instructions DIET: Follow Instructions for: Heart Healthy Diet, Diabetic Diet Activities you can perform: Regular-No Restrictions Kat Castellano May 04, 2017 12:03
--- NOTE | 2017-05-05 12:32 | EKG ---
Date Performed: 05/03/2017 Time Performed: 22:11:40 PTAGE: 36 years EKG: Sinus rhythm POSSIBLE LEFT ATRIAL ENLARGEMENT BORDERLINE ECG No change PREVIOUS TRACING : 05/03/2017 18.19 DOCTOR: Cl Humphries Interpretating Date/Time 05/05/2017 12:32:15
--- NOTE | 2017-05-05 12:34 | EKG ---
Date Performed: 05/03/2017 Time Performed: 18:19:28 PTAGE: 36 years EKG: Sinus rhythm POSSIBLE LEFT ATRIAL ENLARGEMENT BORDERLINE ECG No significant change PREVIOUS TRACING : 05/03/2017 14.26 DOCTOR: Cl Humphries Interpretating Date/Time 05/05/2017 12:33:23
--- NOTE | 2017-05-05 12:34 | EKG ---
Date Performed: 05/03/2017 Time Performed: 14:26:34 PTAGE: 36 years EKG: Sinus rhythm POSSIBLE LEFT ATRIAL ENLARGEMENT BORDERLINE ECG No significant change PREVIOUS TRACING : 05/25/2014 21.28 DOCTOR: Cl Humphries Interpretating Date/Time 05/05/2017 12:33:35
--- NOTE | 2017-05-05 12:40 | TR ---
Date Performed: 05/04/2017 Time Performed: 09:49:24 DOCTOR: Cl Humphries DRUG LIST: CLINICAL HISTORY: ACUTE CHEST PAIN REASON FOR TEST: REASON FOR ENDING: OBSERVATION: CONCLUSION: Saeed protocol completed. Stopped sec to exceeding target heart rate and leg fatigue . Maximum XD=706 Target HR Achieved=87.0% Maximum LB=922/98 Total Exercise Time=4:01. No ectopy. No r eprod chest discomfort. Good exercise tolerance. No st t segment changes, st t segments nondiagnostic . Hypertensive bp response. Recovery quick and unremarkable. COMMENTS:
[2017-05-08] MEDS ORDERED: TOPR25TA PO (13:22)
== END 2017-05-04 12:25 | disposition home or self-care (01) ==
LOC: NEPE 14:09 → NEDA 16:30 → NEPHCDU 17:18
PROVIDERS: ADMIT Internal Medicine Interventional Cardiology; ATTEND Internal Medicine Interventional Cardiology
DX: R07.9 Chest pain, unspecified (principal); I10 Essential (primary) hypertension; E11.9 Type 2 diabetes mellitus without complications; G40.909 Epilepsy, unspecified, not intractable, without status epilepticus; E78.5 Hyperlipidemia, unspecified; R94.31 Abnormal electrocardiogram [ECG] [EKG]; Z72.0 Tobacco use; Z79.4 Long term (current) use of insulin; Z82.49 Family history of ischemic heart disease and other diseases of the circulatory system
CPT/HCPCS: 71045; 80053; 82550; 82552; 82948; 83690; 83735; 84484; 85025; 85379; 85610; 85730; 93005; 93017; 96361; 96372; 96374; 96375; 96376; 99285; G0378; J1170; J1815; J2405; J7040